=== PATIENT | female | born 1980 | race Asian ===

== ENCOUNTER → 2017-04-20 | Outpatient (CLI) | payer BC ==
[~2017-04-20] MED LIST: ACET-749 PO; FLVUNK; METH-589 PO; MTR600X PO; PRENTAB26 PO
== END | disposition home or self-care (01) ==
LOC: C.PAPS 09:26
PROVIDERS: ATTEND Physician Assistant
DX: Z01.419 Encounter for gynecological examination (general) (routine) without abnormal findings (principal)